=== PATIENT | male | born 1995 | race Caucasian/White ===

== ENCOUNTER 2023-02-17 08:38 | Day surgery (SDC) | payer OTHER ==
[~2023-02-17] VITALS: Ht 180.3 cm; Wt 78.9 kg
[~2023-02-17 08:38] MED LIST: ALBU90OI INH
--- NOTE | 2023-02-17 11:57 | NUR ---
02/17/23 1157 [place] ROQUE MOM IN WITH PATIENT, AT BEDSIDE. PT EATING AND DRINKING W/O DIFF. DENIES NAUSEA AND PAIN.
[2023-02-17 12:16] VITALS: BP 135/108
== END 2023-02-17 12:20 | disposition home or self-care (01) ==
LOC: ORSCSDS 08:38
PROVIDERS: Surgery
PROC: 0WUF0JZ Supplement Abdominal Wall with Synthetic Substitute, Open Approach (ICD-10-PCS; principal; 2023-02-17 10:00)
DX: K43.6 Other and unspecified ventral hernia with obstruction, without gangrene (principal); F17.290 Nicotine dependence, other tobacco product, uncomplicated
CPT/HCPCS: C1781; J0690; J1100; J2250; J2405; J2704; J2795; J3010; J7120